=== PATIENT | male | born 1955 | race Caucasian/White ===

== ENCOUNTER 2017-02-20 19:09 | Emergency (ER) | payer OTHER, MEDICAID ==
[2017-02-20 23:17] VITALS: BP 143/78
== END 2017-02-20 23:17 | disposition home or self-care (01) ==
LOC: ED 19:09
DX: J40 Bronchitis, not specified as acute or chronic (principal); J44.9 Chronic obstructive pulmonary disease, unspecified; I10 Essential (primary) hypertension; E07.9 Disorder of thyroid, unspecified; F17.210 Nicotine dependence, cigarettes, uncomplicated; Z88.0 Allergy status to penicillin; Z71.6 Tobacco abuse counseling
CPT/HCPCS: 99406

== ENCOUNTER 2017-03-01 14:58 | Inpatient (IN) | payer OTHER, MEDICAID ==
[~2017-03-01] VITALS: Ht 172.7 cm; Wt 86.8 kg
[2017-03-01 16:20] LABS: BASOPHIL % 0.2 % (0-2); PLATELET COUNT 201 x10^3mcL (130-400); RED CELL DISTRIBUTION WIDTH 16.4 % (11.5-14.5)
[2017-03-01 16:34] LABS: CALCIUM 8.7 mg/dL (8.5-10.1); CARBON DIOXIDE 39.7 mmol/L (21-32); CHLORIDE SERUM 100 mmol/L (98-107); GFR1 > 60 mL/min; GLUCOSE SERUM 96 mg/dL (74-106); POTASSIUM SERUM 4.2 mmol/L (3.5-5.1); SODIUM SERUM 143 mmol/L (136-145)
[2017-03-01 16:39] LABS: ALBUMIN 3.6 g/dL (3.4-5.0); ALKALINE PHOSPHATASE 72 U/L (46-116); ALT/SGPT 25 U/L (16-63); AST/SGOT 45 U/L (15-37); BILIRUBIN TOTAL 0.69 mg/dL (0.20-1.00); TOTAL PROTEIN, SERUM 7.9 g/dL (6.4-8.2)
[2017-03-01 18:29] LABS: AMPHETAMINE QUAL UR NONE DETECTED (NEG <=1000)
[2017-03-01] MEDS ORDERED: ASPIR 8181 MG PO (19:02)
[2017-03-01] MEDS ORDERED: FUROSEMIDE20 MG PO (19:03)
[2017-03-01] MEDS ORDERED: RISACAL-D1 TAB PO (19:03)
[2017-03-01] MEDS ORDERED: LIPI20 PO (19:04)
[2017-03-01] MEDS ORDERED: SYNTHROID0.05 MG PO (19:04)
[2017-03-01] MEDS ORDERED: NEOMYCIN OP (19:06)
[2017-03-01] MEDS ORDERED: VENTOLIN H0.09 MG/A1 IH (19:06)
[2017-03-01] MEDS ORDERED: POLYMYXIN B OP (19:06)
[2017-03-01] MEDS ORDERED: BREO ELLIPTA1 POW IH (19:06)
[2017-03-01] MEDS ORDERED: DEXAMETHASONE OP (19:06)
[2017-03-01] MEDS ORDERED: COLACE100 MG PO (19:08)
[2017-03-01] MEDS ORDERED: MI ACID PO (19:08)
[2017-03-01] MEDS ORDERED: MAPAP325 MG PO (19:09)
[2017-03-01] MEDS ORDERED: CLONAZEPAM0.5 MG PO (19:10)
[2017-03-01] MEDS ORDERED: ABILIFY20 M1 PO (19:12)
[2017-03-01] MEDS ORDERED: DEPAKOTE ER500 MG PO (19:12)
[2017-03-01 20:05] LABS: CHOLESTEROL/HDL RATIO 2.9; PHOSPHOROUS 3.8 mg/dL (2.5-4.9)
[2017-03-01 20:12] LABS: T3 TOTAL 0.71 ng/mL
[2017-03-01 20:29] LABS: FREE T4 0.81 ng/dL (0.76-1.46); FREE THYROXINE INDEX 2.7 ug/dL (1.4-4.5); T4(THYROXINE) 8.3 ug/dL (4.7-13.3)
[2017-03-01 20:39] VITALS: BP 139/59
[2017-03-01 21:18] LABS: UA SPECIFIC GRAVITY 1.025 (1.005-1.035); microscopic required? YES; urine erythrocyte NEGATIVE (NEGATIVE)
[2017-03-01 23:00] VITALS: BP 139/59
[2017-03-02 04:49] VITALS: BP 123/70
[2017-03-02 07:13] LABS: BASOPHIL % 0.4 % (0-2); PLATELET COUNT 154 x10^3mcL (130-400)
[2017-03-02 07:15] LABS: RED CELL DISTRIBUTION WIDTH 16.1 % (11.5-14.5)
[2017-03-02 07:17] LABS: CALCIUM 8.2 mg/dL (8.5-10.1); CHLORIDE SERUM 103 mmol/L (98-107); CREATININE SERUM 0.7 mg/dL (0.7-1.3); GFR1 > 60 mL/min; GLUCOSE SERUM 88 mg/dL (74-106); SODIUM SERUM 143 mmol/L (136-145)
[2017-03-02 09:20] VITALS: BP 122/56
[2017-03-02 13:57] VITALS: BP 100/58
[2017-03-02 17:41] VITALS: BP 116/59
[2017-03-03 06:20] VITALS: BP 113/62
[2017-03-03 07:00] LABS: CALCIUM 8.2 mg/dL (8.5-10.1); CARBON DIOXIDE 38.8 mmol/L (21-32); CHLORIDE SERUM 102 mmol/L (98-107); CREATININE SERUM 0.6 mg/dL (0.7-1.3); GFR1 > 60 mL/min; GLUCOSE SERUM 95 mg/dL (74-106); SODIUM SERUM 142 mmol/L (136-145)
[2017-03-03 07:11] LABS: BASOPHIL % 0.4 % (0-2); PLATELET COUNT 142 x10^3mcL (130-400); RED CELL DISTRIBUTION WIDTH 15.3 % (11.5-14.5)
[2017-03-03 09:30] VITALS: BP 118/62
[2017-03-03 15:52] LABS: IRON 86 ug/dL (65-170); TOTAL IRON BINDING CAPACITY 289 ug/dL (250-450)
[2017-03-03 16:08] LABS: RED BLOOD CELLS 3.32 M/mm3 (4.52-5.90)
[2017-03-03 17:44] VITALS: BP 133/66
[2017-03-04 01:00] VITALS: BP 130/67
[2017-03-04 05:44] VITALS: BP 150/77
[2017-03-04 07:51] LABS: BASOPHIL % 0.3 % (0-2); PLATELET COUNT 164 x10^3mcL (130-400)
[2017-03-04 07:59] LABS: CALCIUM 8.6 mg/dL (8.5-10.1); CARBON DIOXIDE 34.6 mmol/L (21-32); CHLORIDE SERUM 105 mmol/L (98-107); CREATININE SERUM 0.6 mg/dL (0.7-1.3); GFR1 > 60 mL/min; GLUCOSE SERUM 98 mg/dL (74-106); MAGNESIUM 2.1 mg/dL (1.8-2.4); PHOSPHOROUS 3.9 mg/dL (2.5-4.9); POTASSIUM SERUM 4.1 mmol/L (3.5-5.1); SODIUM SERUM 141 mmol/L (136-145)
[2017-03-04 08:00] VITALS: BP 114/63
[2017-03-04 14:13] VITALS: BP 130/56
[2017-03-04 17:38] VITALS: BP 117/61
[2017-03-04 21:19] VITALS: BP 122/54
[2017-03-05 05:03] VITALS: BP 125/63
[2017-03-05 06:59] LABS: CALCIUM 8.8 mg/dL (8.5-10.1); CARBON DIOXIDE 32.2 mmol/L (21-32); CHLORIDE SERUM 102 mmol/L (98-107); CREATININE SERUM 0.5 mg/dL (0.7-1.3); GFR1 > 60 mL/min; GLUCOSE SERUM 92 mg/dL (74-106); PHOSPHOROUS 3.9 mg/dL (2.5-4.9); POTASSIUM SERUM 4.2 mmol/L (3.5-5.1); SODIUM SERUM 139 mmol/L (136-145)
[2017-03-05 07:24] LABS: PLATELET COUNT 190 x10^3mcL (130-400)
[2017-03-05 07:26] LABS: BASOPHIL % 2.4 % (0-2); RED CELL DISTRIBUTION WIDTH 14.8 % (11.5-14.5)
[2017-03-05 09:20] VITALS: BP 121/64
[2017-03-05] MEDS ORDERED: LEVAQUIN750 MG PO (12:04)
[2017-03-05] MEDS ORDERED: LAC PO (12:05)
[2017-03-05] MEDS ORDERED: CLEOCIN HCL300 MG PO (12:07)
[2017-03-05] MEDS ORDERED: NEO500 PO (12:16)
[2017-03-05] MEDS ORDERED: LAC30L PO (12:16)
[2017-03-05 13:09] VITALS: BP 121/64
[2017-03-05 13:13] VITALS: BP 128/75
== END 2017-03-05 14:56 | DRG 871 ==
LOC: ED 14:58 → MU 19:22 → DU 19:22 → MU 03-05 12:17
PROVIDERS: Emergency Medicine; Family Medicine; ADMIT Student in an Organized Health Care Education/Training Program
DX: A41.9 Sepsis, unspecified organism (principal); J69.0 Pneumonitis due to inhalation of food and vomit; N17.0 Acute kidney failure with tubular necrosis; J44.1 Chronic obstructive pulmonary disease with (acute) exacerbation; R65.20 Severe sepsis without septic shock; K72.90 Hepatic failure, unspecified without coma; R73.03 Prediabetes; E78.5 Hyperlipidemia, unspecified; I10 Essential (primary) hypertension; H70.93 Unspecified mastoiditis, bilateral; E03.9 Hypothyroidism, unspecified; Z79.82 Long term (current) use of aspirin; Z68.29 Body mass index [BMI] 29.0-29.9, adult; F17.210 Nicotine dependence, cigarettes, uncomplicated
CPT/HCPCS: 82962; 83880; 84439; 87804; 94150; 97110-GP; 97116-GP; 97530-GP; G0480; J0696; J1956; J2060; J2310; J3490; J7030; J7620; Q0092

== ENCOUNTER 2017-05-01 12:09 | Emergency (ER) | payer OTHER, MEDICAID ==
[~2017-05-01] VITALS: Ht 180.3 cm; Wt 88.9 kg
[~2017-05-01 12:09] MED LIST: ABILIFY20 M1 PO; ASPIR 8181 MG PO; BREO ELLIPTA1 POW IH; CLEOCIN HCL300 MG PO; CLONAZEPAM0.5 MG PO; COLACE100 MG PO; DEPAKOTE ER500 MG PO; DEXAMETHASONE OP; FUROSEMIDE20 MG PO; LAC PO; LAC30L PO; LEVAQUIN750 MG PO; LIPI20 PO; MAPAP325 MG PO; MI ACID PO; NEO500 PO; NEOMYCIN OP; POLYMYXIN B OP; RISACAL-D1 TAB PO; SYNTHROID0.05 MG PO; VENTOLIN H0.09 MG/A1 IH
[2017-05-01 12:24] VITALS: Ht 180.3 cm; Wt 88.9 kg
[2017-05-01 13:46] VITALS: BP 133/73
[2017-05-02] MEDS ORDERED: [UNRECOGNIZED DRUG - OTHER] PO (10:51)
[2017-05-02] MEDS ORDERED: PROMETHAZINE H118 ML PO (10:51)
== END 2017-05-01 13:46 | disposition home or self-care (01) ==
LOC: ED 12:09
DX: J44.1 Chronic obstructive pulmonary disease with (acute) exacerbation (principal); I10 Essential (primary) hypertension; Z85.828 Personal history of other malignant neoplasm of skin; Z88.0 Allergy status to penicillin

== ENCOUNTER 2017-05-02 09:41 | Inpatient (IN) | payer OTHER, MEDICAID ==
[~2017-05-02] VITALS: Ht 172.7 cm; Wt 85.4 kg
[2017-05-02 10:34] LABS: PLATELET COUNT 205 x10^3mcL (130-400)
[2017-05-02 10:38] LABS: RED CELL DISTRIBUTION WIDTH 16.4 % (11.5-14.5)
[2017-05-02 10:40] LABS: CALCIUM 8.7 mg/dL (8.5-10.1); CARBON DIOXIDE 37.1 mmol/L (21-32); CHLORIDE SERUM 99 mmol/L (98-107); GFR1 > 60 mL/min; GLUCOSE SERUM 104 mg/dL (74-106); SODIUM SERUM 143 mmol/L (136-145)
[2017-05-02 10:44] LABS: ALKALINE PHOSPHATASE 67 U/L (46-116); ALT/SGPT 18 U/L (16-63); AST/SGOT 31 U/L (15-37); BILIRUBIN TOTAL 0.5 mg/dL (0.20-1.00); LIPASE 68 IU/L (73-393); TOTAL PROTEIN, SERUM 7.4 g/dL (6.4-8.2)
[2017-05-02 10:45] LABS: ALBUMIN 3.2 g/dL (3.4-5.0)
[2017-05-02 10:48] LABS: UA SPECIFIC GRAVITY >=1.030 (1.005-1.035); microscopic required? YES; urine erythrocyte TRACE (NEGATIVE)
[2017-05-02] MEDS ORDERED: [UNRECOGNIZED DRUG - OTHER] PO (10:51)
[2017-05-02] MEDS ORDERED: PROMETHAZINE H118 ML PO (10:51)
[2017-05-02 10:58] LABS: BAND NEUTROPHIL 39 % (0-10); BASOPHIL 0 % (0-2); MONOCYTE 15 % (0-7); MYELOCYTE 2 % (0-2); SEGMENTED NEUTROPHILS 39 % (37-75)
[2017-05-02 11:00] LABS: rbc morphology (normal/abnorm) ABNORMAL (NORMAL)
[2017-05-02 13:24] VITALS: BP 115/62
[2017-05-02 13:36] VITALS: BP 115/62
[2017-05-02 13:48] VITALS: Ht 172.7 cm; Wt 85.4 kg
[2017-05-02 13:56] LABS: T3 TOTAL 0.78 ng/mL
[2017-05-02 14:16] LABS: PHOSPHOROUS 3.7 mg/dL (2.5-4.9)
[2017-05-02 14:26] LABS: FREE T4 0.94 ng/dL (0.76-1.46); FREE THYROXINE INDEX 2.6 ug/dL (1.4-4.5); T4(THYROXINE) 7.1 ug/dL (4.7-13.3)
[2017-05-02 16:29] VITALS: BP 108/60
[2017-05-02 20:00] VITALS: BP 114/60
[2017-05-02 22:32] LABS: AMPHETAMINE QUAL UR NONE DETECTED (NEG <=1000)
[2017-05-03] VITALS: BP 125/58
[2017-05-03 03:34] VITALS: BP 97/56
[2017-05-03 05:52] LABS: BASOPHIL % 0 % (0-2); PLATELET COUNT 164 x10^3mcL (130-400); RED CELL DISTRIBUTION WIDTH 16.2 % (11.5-14.5)
[2017-05-03 06:06] LABS: CALCIUM 8.3 mg/dL (8.5-10.1); CARBON DIOXIDE 35.3 mmol/L (21-32); CHLORIDE SERUM 102 mmol/L (98-107); CREATININE SERUM 0.9 mg/dL (0.7-1.3); GFR1 > 60 mL/min; GLUCOSE SERUM 145 mg/dL (74-106); HDL CHOLESTEROL 40 mg/dL (40-60); POTASSIUM SERUM 4.2 mmol/L (3.5-5.1); SODIUM SERUM 143 mmol/L (136-145); TRIGLYCERIDES 54 mg/dL (<150)
[2017-05-03 06:14] LABS: CHOLESTEROL 76 mg/dL (<200); CHOLESTEROL/HDL RATIO 1.9
[2017-05-03 08:00] VITALS: BP 113/63
[2017-05-03 12:00] VITALS: BP 108/72; BP 126/74
[2017-05-03 18:00] VITALS: BP 117/65
[2017-05-03 21:41] VITALS: BP 112/55
[2017-05-04 06:11] VITALS: BP 117/74
[2017-05-04 07:50] LABS: CALCIUM 8.7 mg/dL (8.5-10.1); CARBON DIOXIDE 36.1 mmol/L (21-32); CHLORIDE SERUM 104 mmol/L (98-107); CREATININE SERUM 0.7 mg/dL (0.7-1.3); GFR1 > 60 mL/min; GLUCOSE SERUM 131 mg/dL (74-106); MAGNESIUM 2.4 mg/dL (1.8-2.4); PHOSPHOROUS 2.5 mg/dL (2.5-4.9); POTASSIUM SERUM 4.3 mmol/L (3.5-5.1); SODIUM SERUM 141 mmol/L (136-145)
[2017-05-04 09:16] LABS: PLATELET COUNT 184 x10^3mcL (130-400)
[2017-05-04 09:41] LABS: RED CELL DISTRIBUTION WIDTH 16.9 % (11.5-14.5)
[2017-05-04 09:46] VITALS: BP 116/74
[2017-05-04 13:10] VITALS: BP 125/57
[2017-05-04 14:13] LABS: BAND NEUTROPHIL 19 % (0-10); BASOPHIL 0 % (0-2); MONOCYTE 2 % (0-7); MYELOCYTE 2 % (0-2); SEGMENTED NEUTROPHILS 66 % (37-75)
[2017-05-04 14:15] LABS: PLATELET MORPHOLOGY PLATELETS NORMAL; rbc morphology (normal/abnorm) ABNORMAL (NORMAL)
[2017-05-04 17:15] VITALS: BP 131/63
[2017-05-04 20:53] VITALS: BP 114/66
[2017-05-05 04:06] LABS: RED BLOOD CELLS 3.38 M/mm3 (4.52-5.90)
[2017-05-05 04:15] LABS: IRON 94 ug/dL (65-170); TOTAL IRON BINDING CAPACITY 260 ug/dL (250-450)
[2017-05-05 05:32] VITALS: BP 117/66
[2017-05-05 10:15] VITALS: BP 129/73
[2017-05-05 14:40] VITALS: BP 125/75
[2017-05-05 17:58] VITALS: BP 140/61
[2017-05-05 21:28] LABS: CALCIUM 8.6 mg/dL (8.5-10.1); CARBON DIOXIDE 29.3 mmol/L (21-32); CHLORIDE SERUM 102 mmol/L (98-107); CREATININE SERUM 0.7 mg/dL (0.7-1.3); GFR1 > 60 mL/min; GLUCOSE SERUM 159 mg/dL (74-106); MAGNESIUM 2.4 mg/dL (1.8-2.4); PHOSPHOROUS 3.1 mg/dL (2.5-4.9); POTASSIUM SERUM 4.3 mmol/L (3.5-5.1); SODIUM SERUM 140 mmol/L (136-145)
[2017-05-05 22:14] VITALS: BP 138/64
[2017-05-06 05:54] LABS: CALCIUM 8.6 mg/dL (8.5-10.1); CARBON DIOXIDE 31.3 mmol/L (21-32); CHLORIDE SERUM 104 mmol/L (98-107); CREATININE SERUM 0.6 mg/dL (0.7-1.3); GFR1 > 60 mL/min; GLUCOSE SERUM 129 mg/dL (74-106); MAGNESIUM 2.4 mg/dL (1.8-2.4); PHOSPHOROUS 3.8 mg/dL (2.5-4.9); POTASSIUM SERUM 4.4 mmol/L (3.5-5.1); SODIUM SERUM 140 mmol/L (136-145)
[2017-05-06 06:07] VITALS: BP 129/63
[2017-05-06 06:20] LABS: PLATELET COUNT 190 x10^3mcL (130-400); RED CELL DISTRIBUTION WIDTH 16.7 % (11.5-14.5)
[2017-05-06 08:22] VITALS: BP 129/63
[2017-05-06 08:40] VITALS: BP 116/72; BP 122/68
[2017-05-06 10:55] LABS: BAND NEUTROPHIL 8 % (0-10); BASOPHIL 0 % (0-2); MONOCYTE 9 % (0-7); SEGMENTED NEUTROPHILS 78 % (37-75)
[2017-05-06 10:56] LABS: rbc morphology (normal/abnorm) ABNORMAL (NORMAL)
[2017-05-06 10:57] LABS: PLATELET MORPHOLOGY PLATELETS DECREASED
[2017-05-06 13:05] VITALS: BP 133/66
[2017-05-06 17:19] VITALS: BP 127/54
[2017-05-06 21:21] VITALS: BP 140/59
[2017-05-07 05:02] VITALS: BP 127/66
[2017-05-07 07:20] LABS: CALCIUM 8.8 mg/dL (8.5-10.1); CARBON DIOXIDE 34.4 mmol/L (21-32); CHLORIDE SERUM 102 mmol/L (98-107); CREATININE SERUM 0.6 mg/dL (0.7-1.3); GFR1 > 60 mL/min; GLUCOSE SERUM 112 mg/dL (74-106); MAGNESIUM 2.5 mg/dL (1.8-2.4); PHOSPHOROUS 4.1 mg/dL (2.5-4.9); PLATELET COUNT 182 x10^3mcL (130-400); POTASSIUM SERUM 4.7 mmol/L (3.5-5.1); SODIUM SERUM 139 mmol/L (136-145)
[2017-05-07 07:23] LABS: RED CELL DISTRIBUTION WIDTH 16.6 % (11.5-14.5)
[2017-05-07 11:42] LABS: BAND NEUTROPHIL 14 % (0-10); BASOPHIL 0 % (0-2); METAMYELOCTE 1 % (0-2); MONOCYTE 7 % (0-7); MYELOCYTE 3 % (0-2); SEGMENTED NEUTROPHILS 68 % (37-75)
[2017-05-07 11:43] LABS: PLATELET MORPHOLOGY PLATELETS NORMAL; rbc morphology (normal/abnorm) ABNORMAL (NORMAL)
[2017-05-07 15:39] VITALS: BP 133/66
[2017-05-07 16:45] VITALS: BP 133/62
[2017-05-07 21:05] VITALS: BP 125/55
[2017-05-08 05:54] VITALS: BP 151/63
[2017-05-08 06:42] LABS: CALCIUM 8.3 mg/dL (8.5-10.1); CARBON DIOXIDE 34.5 mmol/L (21-32); CHLORIDE SERUM 101 mmol/L (98-107); CREATININE SERUM 0.6 mg/dL (0.7-1.3); GFR1 > 60 mL/min; GLUCOSE SERUM 118 mg/dL (74-106); MAGNESIUM 2.5 mg/dL (1.8-2.4); POTASSIUM SERUM 4.3 mmol/L (3.5-5.1); SODIUM SERUM 139 mmol/L (136-145)
[2017-05-08 08:07] LABS: PLATELET COUNT 183 x10^3mcL (130-400)
[2017-05-08 08:15] LABS: RED CELL DISTRIBUTION WIDTH 16.4 % (11.5-14.5)
[2017-05-08 10:09] VITALS: BP 102/62
[2017-05-08 10:57] LABS: BAND NEUTROPHIL 14 % (0-10); BASOPHIL 0 % (0-2); METAMYELOCTE 3 % (0-2); MONOCYTE 5 % (0-7); MYELOCYTE 2 % (0-2); PLATELET MORPHOLOGY GIANT PLATELET SEEN; SEGMENTED NEUTROPHILS 73 % (37-75); rbc morphology (normal/abnorm) ABNORMAL (NORMAL); tear drop cell (dacryocyte) 1+
[2017-05-08 14:28] VITALS: BP 140/63
[2017-05-08 16:57] VITALS: BP 146/64
[2017-05-08 19:57] VITALS: BP 137/63
[2017-05-08 20:30] VITALS: BP 139/56
[2017-05-09 04:35] VITALS: BP 151/58
[2017-05-09 06:48] LABS: CALCIUM 8.1 mg/dL (8.5-10.1); CARBON DIOXIDE 32.6 mmol/L (21-32); CHLORIDE SERUM 102 mmol/L (98-107); CREATININE SERUM 0.6 mg/dL (0.7-1.3); GFR1 > 60 mL/min; GLUCOSE SERUM 101 mg/dL (74-106); MAGNESIUM 2.3 mg/dL (1.8-2.4); PHOSPHOROUS 3.7 mg/dL (2.5-4.9); POTASSIUM SERUM 4.2 mmol/L (3.5-5.1); SODIUM SERUM 138 mmol/L (136-145)
[2017-05-09 06:51] LABS: PLATELET COUNT 172 x10^3mcL (130-400)
[2017-05-09 09:04] VITALS: BP 138/64
[2017-05-09 10:03] LABS: ATYPICAL LYMPH 1 %; BAND NEUTROPHIL 9 % (0-10); BASOPHIL 0 % (0-2); METAMYELOCTE 3 % (0-2); MONOCYTE 3 % (0-7); MYELOCYTE 2 % (0-2); SEGMENTED NEUTROPHILS 76 % (37-75)
[2017-05-09 10:04] LABS: PLATELET MORPHOLOGY PLATELETS DECREASED; rbc morphology (normal/abnorm) ABNORMAL (NORMAL)
[2017-05-09] MEDS ORDERED: CLINDAMYCIN HC300 MG PO (10:46)
[2017-05-09] MEDS ORDERED: LEVAQUIN750 MG PO (10:46)
[2017-05-09] MEDS ORDERED: NIC21 TD (10:47)
[2017-05-09] MEDS ORDERED: PULMICORT180 MCG/Ac INH (10:50)
[2017-05-09] MEDS ORDERED: LAC PO (10:51)
[2017-05-09] MEDS ORDERED: PREDNISONE10 MG PO (10:53)
[2017-05-09] MEDS ORDERED: ACETAMINOPHEN-H1 TA1 PO (12:59)
[2017-05-09] MEDS ORDERED: ZOFI IV (12:59)
[2017-05-09] MEDS ORDERED: PULMICORT0.5 MG/2 M IH (12:59)
[2017-05-09] MEDS ORDERED: IPRATROPIUM BROM3 M2 HHN ×2 (12:59)
[2017-05-09] MEDS ORDERED: HEP5I SC (12:59)
[2017-05-09] MEDS ORDERED: LEV500PM IV (13:01)
[2017-05-09] MEDS ORDERED: CLINDAMYCI600 MG/50 IV (13:01)
[2017-05-09 14:30] VITALS: BP 138/64
[2017-05-09 15:50] VITALS: BP 138/64
== END 2017-05-09 16:31 | DRG 871 ==
LOC: ED 09:41 → MU 12:16 → IC 12:16 → DU 12:16 → IC 17:43 → DU 18:10 → IC 18:12 → DU 05-03 20:50 → MU 05-05 09:17
PROVIDERS: Emergency Medicine; Family Medicine; Student in an Organized Health Care Education/Training Program
DX: A41.9 Sepsis, unspecified organism (principal); J69.0 Pneumonitis due to inhalation of food and vomit; G93.41 Metabolic encephalopathy; I21.A1 Myocardial infarction type 2; N17.0 Acute kidney failure with tubular necrosis; J96.01 Acute respiratory failure with hypoxia; I50.43 Acute on chronic combined systolic (congestive) and diastolic (congestive) heart failure; E44.1 Mild protein-calorie malnutrition; F31.5 Bipolar disorder, current episode depressed, severe, with psychotic features; R65.20 Severe sepsis without septic shock; I11.0 Hypertensive heart disease with heart failure; J44.9 Chronic obstructive pulmonary disease, unspecified; H10.9 Unspecified conjunctivitis; L30.8 Other specified dermatitis; R73.03 Prediabetes; N28.1 Cyst of kidney, acquired; D53.9 Nutritional anemia, unspecified; E78.5 Hyperlipidemia, unspecified; E03.9 Hypothyroidism, unspecified; F17.210 Nicotine dependence, cigarettes, uncomplicated; E66.3 Overweight; Z68.28 Body mass index [BMI] 28.0-28.9, adult
CPT/HCPCS: 36600; 83880; 84439; 87804; 97110-GP; 97116-GP; 97530-GP; G0480; J1644; J1956; J2920; J2930; J3490; J7030; J7620; J7626; Q0092

== ENCOUNTER 2017-05-27 13:07 | Inpatient (IN) | payer OTHER, MEDICAID ==
[~2017-05-27] VITALS: Ht 172.7 cm; Wt 83.5 kg
[~2017-05-27 13:07] MED LIST changes: +ACETAMINOPHEN-H1 TA1 PO; +CLINDAMYCI600 MG/50 IV; +CLINDAMYCIN HC300 MG PO; +HEP5I SC; +IPRATROPIUM BROM3 M2 HHN; +LEV500PM IV; +NIC21 TD; +PREDNISONE10 MG PO; +PROMETHAZINE H118 ML PO; +PULMICORT0.5 MG/2 M IH; +PULMICORT180 MCG/Ac INH; +ZOFI IV; +[UNRECOGNIZED DRUG - OTHER] PO
[2017-05-27 15:01] LABS: BASOPHIL % 0.4 % (0-2); PLATELET COUNT 273 x10^3mcL (130-400)
[2017-05-27 15:02] LABS: RED CELL DISTRIBUTION WIDTH 16.5 % (11.5-14.5)
[2017-05-27 15:10] LABS: CARBON DIOXIDE 33.5 mmol/L (21-32); CHLORIDE SERUM 104 mmol/L (98-107); CREATININE SERUM 0.7 mg/dL (0.7-1.3); GFR1 > 60 mL/min; GLUCOSE SERUM 132 mg/dL (74-106); POTASSIUM SERUM 3.8 mmol/L (3.5-5.1); SODIUM SERUM 141 mmol/L (136-145)
[2017-05-27 15:23] LABS: ALKALINE PHOSPHATASE 55 U/L (46-116); ALT/SGPT 15 U/L (16-63); AMYLASE 46 U/L (25-115); AST/SGOT 11 U/L (15-37); BILIRUBIN TOTAL 0.2 mg/dL (0.20-1.00); LIPASE 98 IU/L (73-393); T4(THYROXINE) 6.3 ug/dL (4.7-13.3)
[2017-05-27 15:26] LABS: ALBUMIN 2.4 g/dL (3.4-5.0); CHOLESTEROL 97 mg/dL (<200); HDL CHOLESTEROL 31 mg/dL (40-60)
[2017-05-27] MEDS ORDERED: ARIPIPRAZOLE OD10 MG (15:50)
[2017-05-27] MEDS ORDERED: DIVALPROEX SOD500 M2 (15:51)
[2017-05-27] MEDS ORDERED: COMINH INH (15:51)
[2017-05-27 16:52] VITALS: BP 101/53
[2017-05-27 17:00] VITALS: BP 137/65
[2017-05-27 17:03] LABS: PHOSPHOROUS 2.4 mg/dL (2.5-4.9)
[2017-05-27 17:05] LABS: CHOLESTEROL/HDL RATIO 3.1
[2017-05-27 17:11] LABS: T3 TOTAL 0.87 ng/mL
[2017-05-27 17:13] LABS: FREE T4 1.03 ng/dL (0.76-1.46); FREE THYROXINE INDEX 2.4 ug/dL (1.4-4.5); T4(THYROXINE) 6.7 ug/dL (4.7-13.3)
[2017-05-27 17:29] VITALS: BP 121/52
[2017-05-27 17:31] VITALS: Ht 172.7 cm; Wt 83.5 kg
[2017-05-27 17:48] LABS: IRON 67 ug/dL (65-170)
[2017-05-27 17:51] LABS: TOTAL IRON BINDING CAPACITY 233 ug/dL (250-450)
[2017-05-27 17:53] VITALS: BP 1231/52
[2017-05-27 17:53] LABS: RED BLOOD CELLS 3.01 M/mm3 (4.52-5.90)
[2017-05-27 21:00] VITALS: BP 124/61
[2017-05-28 05:37] VITALS: BP 120/52
[2017-05-28 08:04] LABS: microscopic required? NO
[2017-05-28 08:15] LABS: urine erythrocyte NEGATIVE (NEGATIVE)
[2017-05-28 08:21] LABS: AMPHETAMINE QUAL UR NONE DETECTED (NEG <=1000)
[2017-05-28 08:25] LABS: BASOPHIL % 0.2 % (0-2); PLATELET COUNT 241 x10^3mcL (130-400)
[2017-05-28 08:31] LABS: RED CELL DISTRIBUTION WIDTH 16.3 % (11.5-14.5)
[2017-05-28 10:06] VITALS: BP 121/48
[2017-05-28 11:16] LABS: CALCIUM 8.1 mg/dL (8.5-10.1); CARBON DIOXIDE 29.5 mmol/L (21-32); CHLORIDE SERUM 102 mmol/L (98-107); CREATININE SERUM 0.5 mg/dL (0.7-1.3); GFR1 > 60 mL/min; GLUCOSE SERUM 169 mg/dL (74-106); MAGNESIUM 2.1 mg/dL (1.8-2.4); PHOSPHOROUS 2.5 mg/dL (2.5-4.9); POTASSIUM SERUM 4.2 mmol/L (3.5-5.1); SODIUM SERUM 138 mmol/L (136-145)
[2017-05-28 14:01] VITALS: BP 114/56
[2017-05-28 18:16] VITALS: BP 121/52
[2017-05-28 22:08] VITALS: BP 135/54
[2017-05-29 06:23] LABS: BASOPHIL % 0.3 % (0-2); PLATELET COUNT 259 x10^3mcL (130-400)
[2017-05-29 06:29] VITALS: BP 115/45
[2017-05-29 06:33] LABS: RED CELL DISTRIBUTION WIDTH 16.4 % (11.5-14.5)
[2017-05-29 07:58] LABS: CALCIUM 8.1 mg/dL (8.5-10.1); CARBON DIOXIDE 32.5 mmol/L (21-32); CHLORIDE SERUM 107 mmol/L (98-107); CREATININE SERUM 0.5 mg/dL (0.7-1.3); GFR1 > 60 mL/min; GLUCOSE SERUM 89 mg/dL (74-106); PHOSPHOROUS 3.2 mg/dL (2.5-4.9); SODIUM SERUM 142 mmol/L (136-145)
[2017-05-29 10:20] VITALS: BP 117/59
[2017-05-29 14:26] VITALS: BP 114/52
[2017-05-29 17:20] VITALS: BP 122/55
[2017-05-29 21:06] VITALS: BP 118/61
[2017-05-30 05:47] VITALS: BP 123/61
[2017-05-30 06:49] LABS: CALCIUM 8.2 mg/dL (8.5-10.1); CARBON DIOXIDE 34.9 mmol/L (21-32); CHLORIDE SERUM 104 mmol/L (98-107); CREATININE SERUM 0.7 mg/dL (0.7-1.3); GFR1 > 60 mL/min; GLUCOSE SERUM 95 mg/dL (74-106); MAGNESIUM 1.9 mg/dL (1.8-2.4); PHOSPHOROUS 3.8 mg/dL (2.5-4.9); POTASSIUM SERUM 4.3 mmol/L (3.5-5.1); SODIUM SERUM 141 mmol/L (136-145)
[2017-05-30 06:55] LABS: BASOPHIL % 0.4 % (0-2); PLATELET COUNT 305 x10^3mcL (130-400)
[2017-05-30 06:59] LABS: RED CELL DISTRIBUTION WIDTH 16.9 % (11.5-14.5)
[2017-05-30 10:15] VITALS: BP 116/71
[2017-05-30] MEDS ORDERED: LEVAQUIN750 MG PO (11:02)
[2017-05-30] MEDS ORDERED: LAC PO (11:03)
[2017-05-30] MEDS ORDERED: CLEOCIN HCL300 MG PO (11:03)
[2017-05-30 12:01] VITALS: BP 116/71
== END 2017-05-30 13:34 | DRG 177 ==
LOC: ED 13:07 → DU 16:04
PROVIDERS: Emergency Medicine; Family Medicine
PROC: 5A09357 Assistance with Respiratory Ventilation, Less than 24 Consecutive Hours, Continuous Positive Airway Pressure (ICD-10-PCS; principal; 2017-05-27)
DX: J69.0 Pneumonitis due to inhalation of food and vomit (principal); J96.22 Acute and chronic respiratory failure with hypercapnia; I50.43 Acute on chronic combined systolic (congestive) and diastolic (congestive) heart failure; N17.0 Acute kidney failure with tubular necrosis; E43 Unspecified severe protein-calorie malnutrition; J44.1 Chronic obstructive pulmonary disease with (acute) exacerbation; I11.0 Hypertensive heart disease with heart failure; K72.90 Hepatic failure, unspecified without coma; E83.39 Other disorders of phosphorus metabolism; H10.9 Unspecified conjunctivitis; E03.9 Hypothyroidism, unspecified; E78.5 Hyperlipidemia, unspecified; D53.9 Nutritional anemia, unspecified; F31.9 Bipolar disorder, unspecified; F79 Unspecified intellectual disabilities; F41.9 Anxiety disorder, unspecified; F17.210 Nicotine dependence, cigarettes, uncomplicated; Z68.28 Body mass index [BMI] 28.0-28.9, adult; Z88.0 Allergy status to penicillin; Z85.828 Personal history of other malignant neoplasm of skin; Z79.52 Long term (current) use of systemic steroids; Z79.891 Long term (current) use of opiate analgesic; Z79.82 Long term (current) use of aspirin
CPT/HCPCS: 36600; 82962; 83880; 84439; 87804; J1940; J1956; J2270; J2930; J3490; J7030; J7613; J7620; J7644; Q0092

== ENCOUNTER 2017-09-21 11:35 | Emergency (ER) | payer OTHER, MEDICAID ==
[~2017-09-21] VITALS: Ht 180.3 cm; Wt 83.0 kg
[~2017-09-21 11:35] MED LIST changes: +ARIPIPRAZOLE OD10 MG; +COMINH INH; +DIVALPROEX SOD500 M2
[2017-09-21 11:40] VITALS: BP 139/89; Ht 180.3 cm; Wt 83.0 kg
== END 2017-09-21 12:04 | disposition home or self-care (01) ==
LOC: ED 11:35
DX: S70.11XA Contusion of right thigh, initial encounter (principal); I11.0 Hypertensive heart disease with heart failure; Z88.0 Allergy status to penicillin; J44.9 Chronic obstructive pulmonary disease, unspecified; I50.9 Heart failure, unspecified; X58.XXXA Exposure to other specified factors, initial encounter; Y93.79 Activity, other specified sports and athletics; Y92.39 Other specified sports and athletic area as the place of occurrence of the external cause; Y99.8 Other external cause status

== ENCOUNTER 2017-09-23 14:07 | Inpatient (IN) | payer OTHER, MEDICAID ==
[~2017-09-23] VITALS: Ht 180.3 cm; Wt 81.9 kg
[2017-09-23 14:20] VITALS: Ht 180.3 cm; Wt 81.9 kg
[2017-09-23 15:18] LABS: CALCIUM 8.6 mg/dL (8.5-10.1); CARBON DIOXIDE 35.1 mmol/L (21-32); CHLORIDE SERUM 103 mmol/L (98-107); GFR1 > 60 mL/min; GLUCOSE SERUM 95 mg/dL (74-106); POTASSIUM SERUM 4.6 mmol/L (3.5-5.1); SODIUM SERUM 143 mmol/L (136-145)
[2017-09-23 15:23] LABS: ALKALINE PHOSPHATASE 90 U/L (46-116); ALT/SGPT 25 U/L (16-63); AST/SGOT 45 U/L (15-37); BILIRUBIN TOTAL 0.53 mg/dL (0.20-1.00); TOTAL PROTEIN, SERUM 6.8 g/dL (6.4-8.2)
[2017-09-23] MEDS ORDERED: BREO ELLIPTA1 POW IH (15:24)
[2017-09-23 15:25] LABS: BASOPHIL % 0.2 % (0-2); PLATELET COUNT 188 x10^3mcL (130-400)
[2017-09-23 15:26] LABS: RED CELL DISTRIBUTION WIDTH 16.5 % (11.5-14.5)
[2017-09-23] MEDS ORDERED: SPIRIVA RE2.5 MCG/Ac INH (15:26)
[2017-09-23] MEDS ORDERED: CLONAZEPAM1 MG PO (15:28)
[2017-09-23] MEDS ORDERED: VENTOLIN H0.09 MG/A1 IH (15:29)
[2017-09-23 16:36] LABS: CHOLESTEROL/HDL RATIO 2.8
[2017-09-23 16:38] LABS: T3 TOTAL 0.68 ng/mL
[2017-09-23 16:41] LABS: RED BLOOD CELLS 3.28 M/mm3 (4.52-5.90)
[2017-09-23 16:46] LABS: FREE T4 0.89 ng/dL (0.76-1.46); FREE THYROXINE INDEX 2.2 ug/dL (1.4-4.5); T4(THYROXINE) 6.7 ug/dL (4.7-13.3)
[2017-09-23 17:16] LABS: IRON 43 ug/dL (65-170); TOTAL IRON BINDING CAPACITY 376 ug/dL (250-450)
[2017-09-23 17:19] VITALS: BP 94/47
[2017-09-23 17:43] VITALS: BP 105/58
[2017-09-23 19:47] LABS: UA SPECIFIC GRAVITY 1.025 (1.005-1.035); urine erythrocyte NEGATIVE (NEGATIVE)
[2017-09-23 19:55] LABS: AMPHETAMINE QUAL UR NONE DETECTED (NEG <=1000)
[2017-09-23 20:00] LABS: microscopic required? YES
[2017-09-23 22:06] VITALS: BP 95/44
[2017-09-23 22:31] VITALS: BP 98/47
[2017-09-24 00:35] VITALS: BP 97/56
[2017-09-24 03:26] LABS: BASOPHIL % 0.3 % (0-2); PLATELET COUNT 159 x10^3mcL (130-400)
[2017-09-24 03:47] LABS: CALCIUM 7.9 mg/dL (8.5-10.1); CARBON DIOXIDE 32.5 mmol/L (21-32); CHLORIDE SERUM 102 mmol/L (98-107); CREATININE SERUM 0.7 mg/dL (0.7-1.3); GFR1 > 60 mL/min; GLUCOSE SERUM 161 mg/dL (74-106); MAGNESIUM 2.1 mg/dL (1.8-2.4); PHOSPHOROUS 3.4 mg/dL (2.5-4.9); POTASSIUM SERUM 4.3 mmol/L (3.5-5.1); SODIUM SERUM 140 mmol/L (136-145)
[2017-09-24 06:03] VITALS: BP 109/58
[2017-09-24 06:24] VITALS: BP 97/60
[2017-09-24 09:35] VITALS: BP 100/49
[2017-09-24 12:30] VITALS: BP 123/56
[2017-09-24 19:00] VITALS: BP 96/43
[2017-09-25 05:21] VITALS: BP 125/61
[2017-09-25 06:22] LABS: BASOPHIL % 0.5 % (0-2); PLATELET COUNT 236 x10^3mcL (130-400)
[2017-09-25 06:28] LABS: CALCIUM 8.5 mg/dL (8.5-10.1); CARBON DIOXIDE 32.8 mmol/L (21-32); CHLORIDE SERUM 107 mmol/L (98-107); CREATININE SERUM 0.7 mg/dL (0.7-1.3); GFR1 > 60 mL/min; GLUCOSE SERUM 91 mg/dL (74-106); MAGNESIUM 2.2 mg/dL (1.8-2.4); PHOSPHOROUS 2.9 mg/dL (2.5-4.9); POTASSIUM SERUM 3.7 mmol/L (3.5-5.1); SODIUM SERUM 144 mmol/L (136-145)
[2017-09-25 06:42] LABS: RED CELL DISTRIBUTION WIDTH 16.7 % (11.5-14.5)
[2017-09-25 08:30] VITALS: BP 125/57
[2017-09-25 17:58] VITALS: BP 97/52
[2017-09-25 20:56] VITALS: BP 113/54
[2017-09-26 06:48] LABS: BASOPHIL % 0.1 % (0-2); PLATELET COUNT 237 x10^3mcL (130-400)
[2017-09-26 06:51] LABS: CALCIUM 8.2 mg/dL (8.5-10.1); CARBON DIOXIDE 30.9 mmol/L (21-32); CHLORIDE SERUM 105 mmol/L (98-107); CREATININE SERUM 0.7 mg/dL (0.7-1.3); GFR1 > 60 mL/min; GLUCOSE SERUM 125 mg/dL (74-106); MAGNESIUM 2.1 mg/dL (1.8-2.4); PHOSPHOROUS 4.1 mg/dL (2.5-4.9); POTASSIUM SERUM 4.6 mmol/L (3.5-5.1); SODIUM SERUM 141 mmol/L (136-145)
[2017-09-26 07:01] LABS: RED CELL DISTRIBUTION WIDTH 16.9 % (11.5-14.5)
[2017-09-26 09:55] VITALS: BP 108/47
[2017-09-26 11:16] VITALS: BP 125/53
[2017-09-26] MEDS ORDERED: LEVOFLOXACIN500 M1 PO (11:34)
[2017-09-26] MEDS ORDERED: LAC PO (11:35)
[2017-09-26] MEDS ORDERED: MEDDP PO (11:48)
[2017-09-26 13:30] VITALS: BP 106/52
[2017-09-26 17:16] VITALS: BP 117/55
[2017-09-26 17:57] VITALS: BP 117/55
== END 2017-09-26 19:37 | DRG 177 ==
LOC: ED 14:07 → DU 15:10 → EDBEDREQ 15:52 → DU 16:56
PROVIDERS: Emergency Medicine; Family Medicine
DX: J69.0 Pneumonitis due to inhalation of food and vomit (principal); N17.0 Acute kidney failure with tubular necrosis; J96.21 Acute and chronic respiratory failure with hypoxia; J44.1 Chronic obstructive pulmonary disease with (acute) exacerbation; F31.5 Bipolar disorder, current episode depressed, severe, with psychotic features; E44.1 Mild protein-calorie malnutrition; I11.0 Hypertensive heart disease with heart failure; E03.9 Hypothyroidism, unspecified; R73.03 Prediabetes; D64.9 Anemia, unspecified; H10.9 Unspecified conjunctivitis; E78.5 Hyperlipidemia, unspecified; F41.9 Anxiety disorder, unspecified; Z68.26 Body mass index [BMI] 26.0-26.9, adult; F17.210 Nicotine dependence, cigarettes, uncomplicated; Z85.828 Personal history of other malignant neoplasm of skin
CPT/HCPCS: 82962; 83880; 84439; 94150; 97110-GP; 97116-GP; 97530-GP; 97535-GP; 99406; J1644; J1956; J2060; J2920; J2930; J3230; J3486; J3490; J7030; J7040; J7620; J7633; Q0092

== ENCOUNTER 2018-01-11 07:08 | Inpatient (IN) | payer OTHER, MEDICAID ==
[~2018-01-11] VITALS: Ht 180.3 cm; Wt 82.6 kg
[~2018-01-11 07:08] MED LIST changes: +CLONAZEPAM1 MG PO; +LEVOFLOXACIN500 M1 PO; +MEDDP PO; +SPIRIVA RE2.5 MCG/Ac INH
[2018-01-11 07:23] VITALS: Ht 180.3 cm; Wt 82.6 kg
[2018-01-11 08:15] LABS: BASOPHIL % 0.5 % (0-2); PLATELET COUNT 150 x10^3mcL (130-400)
[2018-01-11 08:29] LABS: CALCIUM 8.1 mg/dL (8.5-10.1); CARBON DIOXIDE 33.2 mmol/L (21-32); CHLORIDE SERUM 100 mmol/L (98-107); CREATININE SERUM 0.8 mg/dL (0.7-1.3); GFR1 > 60 mL/min; GLUCOSE SERUM 100 mg/dL (74-106); POTASSIUM SERUM 3.8 mmol/L (3.5-5.1); SODIUM SERUM 137 mmol/L (136-145)
[2018-01-11 08:34] LABS: ALKALINE PHOSPHATASE 73 U/L (46-116); ALT/SGPT 17 U/L (16-63); AST/SGOT 24 U/L (15-37); BILIRUBIN TOTAL 0.3 mg/dL (0.20-1.00); RED CELL DISTRIBUTION WIDTH 16.9 % (11.5-14.5); TOTAL PROTEIN, SERUM 6.9 g/dL (6.4-8.2)
[2018-01-11 08:42] LABS: ALBUMIN 2.4 g/dL (3.4-5.0)
[2018-01-11 09:07] LABS: microscopic required? YES; urine erythrocyte 3+ (NEGATIVE)
[2018-01-11] MEDS ORDERED: CLONAZEPAM1 MG PO (10:19)
[2018-01-11] MEDS ORDERED: REFRESH LIQUIGE15 ML OU (10:21)
[2018-01-11 11:11] LABS: CHOLESTEROL/HDL RATIO 2.9
[2018-01-11 11:20] VITALS: BP 110/56
[2018-01-11 11:31] LABS: T3 TOTAL 0.65 ng/mL
[2018-01-11 11:46] VITALS: BP 110/56
[2018-01-11 11:48] LABS: FREE T4 0.85 ng/dL (0.76-1.46); FREE THYROXINE INDEX 2.1 ug/dL (1.4-4.5); T4(THYROXINE) 6.1 ug/dL (4.7-13.3)
[2018-01-11 14:00] VITALS: BP 129/55
[2018-01-11 16:38] VITALS: BP 135/55
[2018-01-11 20:28] VITALS: BP 141/50
[2018-01-12 05:50] VITALS: BP 116/43
[2018-01-12 06:22] LABS: BASOPHIL % 0.2 % (0-2)
[2018-01-12 06:25] LABS: CALCIUM 8.3 mg/dL (8.5-10.1); CARBON DIOXIDE 36.5 mmol/L (21-32); CHLORIDE SERUM 102 mmol/L (98-107); CREATININE SERUM 0.8 mg/dL (0.7-1.3); GFR1 > 60 mL/min; GLUCOSE SERUM 90 mg/dL (74-106); MAGNESIUM 2.2 mg/dL (1.8-2.4); PHOSPHOROUS 3.3 mg/dL (2.5-4.9); POTASSIUM SERUM 4.1 mmol/L (3.5-5.1); SODIUM SERUM 138 mmol/L (136-145)
[2018-01-12 06:30] LABS: PLATELET COUNT 115 x10^3mcL (130-400); RED CELL DISTRIBUTION WIDTH 17.5 % (11.5-14.5)
[2018-01-12 09:02] VITALS: BP 104/54
[2018-01-12 13:26] VITALS: BP 146/77
[2018-01-12 17:16] VITALS: BP 96/51
[2018-01-12 20:53] VITALS: BP 111/54
[2018-01-13 06:35] VITALS: BP 136/57
[2018-01-13 08:41] VITALS: BP 112/46
[2018-01-13 12:56] VITALS: BP 116/53
[2018-01-13 16:44] VITALS: BP 126/55
[2018-01-13 21:13] VITALS: BP 108/47
[2018-01-14 06:06] VITALS: BP 123/50
[2018-01-14 09:07] VITALS: BP 109/48
[2018-01-14 12:16] VITALS: BP 121/53
[2018-01-14 15:34] VITALS: BP 121/53
[2018-01-14] MEDS ORDERED: ROC1I IV (15:46)
[2018-01-14] MEDS ORDERED: MEDDP PO (15:48)
[2018-01-14 16:29] VITALS: BP 119/70
== END 2018-01-14 17:20 | DRG 189 ==
LOC: ED 07:08 → DU 10:29
PROVIDERS: Emergency Medicine; Internal Medicine
DX: J96.01 Acute respiratory failure with hypoxia (principal); G93.41 Metabolic encephalopathy; E43 Unspecified severe protein-calorie malnutrition; N17.0 Acute kidney failure with tubular necrosis; N39.0 Urinary tract infection, site not specified; J44.1 Chronic obstructive pulmonary disease with (acute) exacerbation; F31.5 Bipolar disorder, current episode depressed, severe, with psychotic features; S00.81XA Abrasion of other part of head, initial encounter; F70 Mild intellectual disabilities; F41.9 Anxiety disorder, unspecified; R80.9 Proteinuria, unspecified; E03.9 Hypothyroidism, unspecified; D53.9 Nutritional anemia, unspecified; F17.210 Nicotine dependence, cigarettes, uncomplicated; Z68.26 Body mass index [BMI] 26.0-26.9, adult; W18.39XA Other fall on same level, initial encounter; Y93.89 Activity, other specified; Y92.89 Other specified places as the place of occurrence of the external cause
CPT/HCPCS: 36600; 83880; 84439; 97116-GP; 97530-GP; J0696; J2920; J2930; J7030; J7050; J7620; Q0092

== ENCOUNTER 2018-06-22 14:35 | Emergency (ER) | payer OTHER, MEDICAID ==
[~2018-06-22] VITALS: Ht 180.3 cm; Wt 77.1 kg
[~2018-06-22 14:35] MED LIST changes: +REFRESH LIQUIGE15 ML OU; +ROC1I IV
[2018-06-22 15:33] VITALS: Ht 180.3 cm; Wt 77.1 kg
[2018-06-22 17:22] LABS: BASOPHIL % 0.3 % (0-2)
[2018-06-22 17:45] LABS: RED CELL DISTRIBUTION WIDTH 16.9 % (11.5-14.5)
[2018-06-22 17:46] LABS: PLATELET COUNT 120 x10^3mcL (130-400)
[2018-06-22 17:47] LABS: ALKALINE PHOSPHATASE 64 U/L (46-116); ALT/SGPT 23 U/L (16-63); AST/SGOT 31 U/L (15-37); BILIRUBIN TOTAL 0.31 mg/dL (0.20-1.00); CARBON DIOXIDE 27.8 mmol/L (21-32); CHLORIDE SERUM 100 mmol/L (98-107); POTASSIUM SERUM 4.7 mmol/L (3.5-5.1); SODIUM SERUM 136 mmol/L (136-145); TOTAL PROTEIN, SERUM 6.9 g/dL (6.4-8.2)
[2018-06-22 17:57] LABS: ALBUMIN 3.3 g/dL (3.4-5.0); FREE T4 0 ng/dL (0.76-1.46)
[2018-06-22 18:08] LABS: CREATININE SERUM 0.7 mg/dL (0.7-1.3); GFR1 > 60 mL/min; GLUCOSE SERUM 91 mg/dL (74-106)
[2018-06-22 18:33] VITALS: BP 130/71
== END 2018-06-22 18:33 | disposition home or self-care (01) ==
LOC: ED 14:35
PROVIDERS: Emergency Medicine
DX: R45.1 Restlessness and agitation (principal); I11.0 Hypertensive heart disease with heart failure; I50.9 Heart failure, unspecified; J44.9 Chronic obstructive pulmonary disease, unspecified; F20.9 Schizophrenia, unspecified; Z88.0 Allergy status to penicillin; Z85.828 Personal history of other malignant neoplasm of skin
CPT/HCPCS: 36415; 83880; 84439; 87804; G0480; Q0092

== ENCOUNTER 2018-07-31 10:31 | Inpatient (IN) | payer OTHER, MEDICAID ==
[~2018-07-31] VITALS: Ht 175.3 cm; Wt 74.8 kg
[2018-07-31 10:32] VITALS: Ht 175.3 cm; Wt 74.8 kg
[2018-07-31 11:33] LABS: BASOPHIL % 0.1 % (0-2); PLATELET COUNT 173 x10^3mcL (130-400)
[2018-07-31 11:45] LABS: RED CELL DISTRIBUTION WIDTH 16.2 % (11.5-14.5)
[2018-07-31 11:50] LABS: microscopic required? NO
[2018-07-31 11:52] LABS: CALCIUM 8.4 mg/dL (8.5-10.1); CARBON DIOXIDE 37.1 mmol/L (21-32); CHLORIDE SERUM 101 mmol/L (98-107); CREATININE SERUM 0.8 mg/dL (0.7-1.3); GFR1 > 60 mL/min; GLUCOSE SERUM 92 mg/dL (74-106); POTASSIUM SERUM 3.9 mmol/L (3.5-5.1); SODIUM SERUM 139 mmol/L (136-145)
[2018-07-31 11:56] LABS: ALKALINE PHOSPHATASE 78 U/L (46-116); ALT/SGPT 18 U/L (16-63); AST/SGOT 17 U/L (15-37); BILIRUBIN TOTAL 0.5 mg/dL (0.20-1.00); MAGNESIUM 2.1 mg/dL (1.8-2.4); TOTAL PROTEIN, SERUM 6.6 g/dL (6.4-8.2)
[2018-07-31 12:00] LABS: ALBUMIN 2.8 g/dL (3.4-5.0)
[2018-07-31 13:17] LABS: urine erythrocyte NEGATIVE (NEGATIVE)
[2018-07-31] MEDS ORDERED: REFRESH OPTIVE15 M1 OP (14:13)
[2018-07-31] MEDS ORDERED: LITHIUM CARBON150 MG PO (14:14)
[2018-07-31] MEDS ORDERED: KLONOPIN1 MG PO (14:15)
[2018-07-31] MEDS ORDERED: ABILIFY PO (14:15)
[2018-07-31] MEDS ORDERED: DEPAKOTE500 MG PO (14:16)
[2018-07-31] MEDS ORDERED: SPIRIVA RE2.5 MCG/Ac IH (14:17)
[2018-07-31] MEDS ORDERED: LIPI20 PO (14:17)
[2018-07-31] MEDS ORDERED: SYNTHROID0.05 MG PO (14:18)
[2018-07-31] MEDS ORDERED: BAYER ASPIRIN R81 MG PO (14:18)
[2018-07-31] MEDS ORDERED: RISACAL-D1 TAB PO (14:19)
[2018-07-31] MEDS ORDERED: LASIX20 MG PO (14:19)
[2018-07-31] MEDS ORDERED: LASIX20 MG (14:19)
[2018-07-31] MEDS ORDERED: BREO ELLIPTA1 POW IH (14:20)
[2018-07-31] MEDS ORDERED: KETOCONAZOLE S120 M1 TOP (14:21)
[2018-07-31] MEDS ORDERED: COLACE100 MG PO (14:22)
[2018-07-31] MEDS ORDERED: ULTRAM50 MG PO (14:22)
[2018-07-31] MEDS ORDERED: MAPAP325 MG PO (14:23)
[2018-07-31] MEDS ORDERED: BISMUTH SU PO (14:25)
[2018-07-31] MEDS ORDERED: MI ACID PO (14:25)
[2018-07-31] MEDS ORDERED: [UNRECOGNIZED DRUG - OTHER] TOP (14:26)
[2018-07-31] MEDS ORDERED: VENTOLIN H0.09 MG/A1 IH (14:27)
[2018-07-31] MEDS ORDERED: ROBAFEN DM COU118 ML PO (14:28)
[2018-07-31] MEDS ORDERED: ATROVENT H0.017 MG/1 INH (14:28)
[2018-07-31] MEDS ORDERED: [UNRECOGNIZED DRUG - SUPPLY] MC (14:29)
[2018-07-31 15:12] VITALS: BP 119/47
[2018-07-31 21:01] VITALS: BP 121/44
[2018-08-01 06:09] VITALS: BP 113/44
[2018-08-01 08:15] LABS: BASOPHIL % 0.4 % (0-2); PLATELET COUNT 160 x10^3mcL (130-400)
[2018-08-01 08:21] LABS: RED CELL DISTRIBUTION WIDTH 16.4 % (11.5-14.5)
[2018-08-01 08:23] LABS: CALCIUM 8.3 mg/dL (8.5-10.1); CARBON DIOXIDE 37.6 mmol/L (21-32); CHLORIDE SERUM 102 mmol/L (98-107); CREATININE SERUM 0.6 mg/dL (0.7-1.3); GFR1 > 60 mL/min; GLUCOSE SERUM 93 mg/dL (74-106); POTASSIUM SERUM 3.8 mmol/L (3.5-5.1); SODIUM SERUM 140 mmol/L (136-145)
[2018-08-01 08:38] LABS: T4(THYROXINE) 6.6 ug/dL (4.7-13.3)
[2018-08-01 09:11] VITALS: BP 112/54
[2018-08-01 12:41] VITALS: BP 106/44
[2018-08-01 17:21] VITALS: BP 107/45
[2018-08-01 19:32] VITALS: BP 114/53
[2018-08-02 06:11] VITALS: BP 120/60
[2018-08-02 07:20] LABS: BASOPHIL % 0.3 % (0-2); PLATELET COUNT 191 x10^3mcL (130-400)
[2018-08-02 07:28] LABS: RED CELL DISTRIBUTION WIDTH 16.1 % (11.5-14.5)
[2018-08-02 09:00] VITALS: BP 106/56
[2018-08-02 12:19] VITALS: BP 105/42
[2018-08-02 13:19] LABS: RAPID PLASMA REAGIN Non Reactive (Non Reactive)
[2018-08-02 17:28] VITALS: BP 118/51
[2018-08-02 20:33] VITALS: BP 117/56
[2018-08-02 21:00] LABS: RHEUMATOID ARTHRITIS FACTOR 60.1 IU/mL (0.0-13.9)
[2018-08-03 06:13] VITALS: BP 110/49
[2018-08-03 07:43] LABS: CALCIUM 8.7 mg/dL (8.5-10.1); CARBON DIOXIDE 34.7 mmol/L (21-32); CHLORIDE SERUM 102 mmol/L (98-107); CREATININE SERUM 0.6 mg/dL (0.7-1.3); GFR1 > 60 mL/min; GLUCOSE SERUM 91 mg/dL (74-106); POTASSIUM SERUM 4.4 mmol/L (3.5-5.1); SODIUM SERUM 141 mmol/L (136-145)
[2018-08-03 08:10] VITALS: BP 115/35
[2018-08-03 08:13] LABS: RED CELL DISTRIBUTION WIDTH 16.5 % (11.5-14.5)
[2018-08-03 08:14] LABS: PLATELET COUNT 239 x10^3mcL (130-400)
[2018-08-03 12:13] VITALS: BP 113/42
[2018-08-03 13:51] LABS: ATYPICAL LYMPH 1 %; BAND NEUTROPHIL 9 % (0-10); BASOPHIL 0 % (0-2); MONOCYTE 13 % (0-7); SEGMENTED NEUTROPHILS 47 % (37-75)
[2018-08-03 13:53] LABS: PLATELET MORPHOLOGY PLATELETS DECREASED; rbc morphology (normal/abnorm) ABNORMAL (NORMAL)
[2018-08-03 17:21] VITALS: BP 130/43
[2018-08-03 21:31] VITALS: BP 116/51
[2018-08-04 04:26] VITALS: BP 118/55
[2018-08-04 09:29] VITALS: BP 118/54
[2018-08-04 12:04] VITALS: BP 111/49
[2018-08-04 16:39] VITALS: BP 115/53
[2018-08-04 20:01] VITALS: BP 116/42
[2018-08-05 06:10] VITALS: BP 129/64
[2018-08-05 08:50] LABS: BASOPHIL % 0.3 % (0-2); PLATELET COUNT 272 x10^3mcL (130-400)
[2018-08-05 08:54] LABS: RED CELL DISTRIBUTION WIDTH 16.1 % (11.5-14.5)
[2018-08-05 09:11] LABS: CALCIUM 8.9 mg/dL (8.5-10.1); CARBON DIOXIDE 34.6 mmol/L (21-32); CHLORIDE SERUM 102 mmol/L (98-107); CREATININE SERUM 0.7 mg/dL (0.7-1.3); GFR1 > 60 mL/min; GLUCOSE SERUM 112 mg/dL (74-106); POTASSIUM SERUM 4.6 mmol/L (3.5-5.1); SODIUM SERUM 140 mmol/L (136-145)
[2018-08-05 09:52] VITALS: BP 125/57
[2018-08-05 13:43] VITALS: BP 125/57
[2018-08-05 13:46] VITALS: BP 114/54
== END 2018-08-05 16:28 | DRG 70 ==
LOC: ED 10:31 → DU 14:08
PROVIDERS: Emergency Medicine; Internal Medicine; ADMIT Internal Medicine
DX: G93.41 Metabolic encephalopathy (principal); J96.91 Respiratory failure, unspecified with hypoxia; J44.1 Chronic obstructive pulmonary disease with (acute) exacerbation; E05.90 Thyrotoxicosis, unspecified without thyrotoxic crisis or storm; I25.10 Atherosclerotic heart disease of native coronary artery without angina pectoris; F70 Mild intellectual disabilities; F25.9 Schizoaffective disorder, unspecified; Z68.25 Body mass index [BMI] 25.0-25.9, adult; Z85.828 Personal history of other malignant neoplasm of skin
CPT/HCPCS: 36600; 86431; 87804; 97110-GP; 97116-GP; 97530-GP; J1956; J3535; J7030; J7050; J7509; J7620; J7626; Q0092

== ENCOUNTER 2018-12-07 20:29 | Emergency (ER) | payer OTHER, MEDICAID ==
[~2018-12-07] VITALS: Ht 180.3 cm; Wt 80.7 kg
[~2018-12-07 20:29] MED LIST changes: +ABILIFY PO; +ATROVENT H0.017 MG/1 INH; +BAYER ASPIRIN R81 MG PO; +BISMUTH SU PO; +DEPAKOTE500 MG PO; +KETOCONAZOLE S120 M1 TOP; +KLONOPIN1 MG PO; +LASIX20 MG; +LASIX20 MG PO; +LITHIUM CARBON150 MG PO; +REFRESH OPTIVE15 M1 OP; +ROBAFEN DM COU118 ML PO; +SPIRIVA RE2.5 MCG/Ac IH; +ULTRAM50 MG PO; +[UNRECOGNIZED DRUG - OTHER] TOP; +[UNRECOGNIZED DRUG - SUPPLY] MC
[2018-12-07 20:38] VITALS: Ht 180.3 cm; Wt 80.7 kg
[2018-12-07 21:54] VITALS: BP 137/75
== END 2018-12-07 21:55 | disposition home or self-care (01) ==
LOC: ED 20:29
DX: C44.90 Unspecified malignant neoplasm of skin, unspecified (principal); R58 Hemorrhage, not elsewhere classified; J44.9 Chronic obstructive pulmonary disease, unspecified; I11.0 Hypertensive heart disease with heart failure; I50.9 Heart failure, unspecified; F20.9 Schizophrenia, unspecified; Z88.0 Allergy status to penicillin

== ENCOUNTER 2019-01-12 18:31 | Emergency (ER) | payer OTHER, MEDICAID ==
[~2019-01-12] VITALS: Ht 180.3 cm; Wt 75.5 kg
[2019-01-12 18:51] VITALS: Ht 180.3 cm; Wt 75.5 kg
[2019-01-12 21:30] VITALS: BP 132/72
== END 2019-01-12 21:30 | disposition home or self-care (01) ==
LOC: ED 18:31
DX: S01.80XA Unspecified open wound of other part of head, initial encounter (principal); J44.9 Chronic obstructive pulmonary disease, unspecified; I11.0 Hypertensive heart disease with heart failure; I50.9 Heart failure, unspecified; F20.9 Schizophrenia, unspecified; Z98.890 Other specified postprocedural states; Z88.0 Allergy status to penicillin; X58.XXXA Exposure to other specified factors, initial encounter; Y93.89 Activity, other specified; Y92.89 Other specified places as the place of occurrence of the external cause; Y99.8 Other external cause status

== ENCOUNTER 2019-01-13 16:58 | Emergency (ER) | payer OTHER, MEDICAID ==
[~2019-01-13] VITALS: Ht 170.2 cm; Wt 74.4 kg
[2019-01-13 17:32] VITALS: Ht 170.2 cm; Wt 74.4 kg
[2019-01-13 18:54] VITALS: BP 123/63
== END 2019-01-13 18:54 | disposition home or self-care (01) ==
LOC: ED 16:58
DX: Z48.01 Encounter for change or removal of surgical wound dressing (principal); I11.0 Hypertensive heart disease with heart failure; I50.9 Heart failure, unspecified; J44.9 Chronic obstructive pulmonary disease, unspecified; F20.9 Schizophrenia, unspecified; F17.210 Nicotine dependence, cigarettes, uncomplicated; Z88.0 Allergy status to penicillin

== ENCOUNTER 2019-01-15 11:28 | Emergency (ER) | payer OTHER, MEDICAID ==
[~2019-01-15] VITALS: Ht 167.6 cm; Wt 75.3 kg
[2019-01-15 11:37] VITALS: Ht 167.6 cm; Wt 75.3 kg
[2019-01-15 12:18] VITALS: BP 124/65
== END 2019-01-15 12:18 | disposition home or self-care (01) ==
LOC: ED 11:28
DX: L53.9 Erythematous condition, unspecified (principal); Z48.01 Encounter for change or removal of surgical wound dressing; J44.9 Chronic obstructive pulmonary disease, unspecified; I11.0 Hypertensive heart disease with heart failure; I50.9 Heart failure, unspecified; Z85.828 Personal history of other malignant neoplasm of skin; Z88.0 Allergy status to penicillin